=== PATIENT | female | born 1995 | race Hispanic/Latino ===

== ENCOUNTER → 2020-12-21 11:20 | Outpatient (CLI) | payer OTHER, SELFPAY ==
[2020-12-21 12:28] LABS: Add Manual Diff / Slide Review NO; Basophils Absolute Auto 0 /uL (0-100); Basophils Percent Auto 0.3 % (0-2); Eosinophils Absolute Auto 100 /uL (0-450); Eosinophils Percent Auto 1.4 % (2-4); Hematocrit 32.5 % (36-46); Hemoglobin 11.3 g/dL (12.0-16.0); Lymphocytes Absolute Auto 1400 /uL (1100-4500); Lymphocytes Percent Auto 16.1 % (25-40); Mean Corpuscular HGB Conc 34.8 % (30-36); Mean Corpuscular Hemoglobin 29.6 PG (26-34); Monocytes Absolute Auto 500 /uL (0-900); Monocytes Percent Auto 5.9 % (3-14); Neutrophils Absolute Auto 6400 /uL (1500-7000); Neutrophils Percent Auto 76.3 % (50-75); Platelet Count 249 X10^3/uL (150-400); Red Blood Cell Count 3.82 X10^6/uL (4.0-5.2); White Blood Cell Count 8.4 X10^3/uL (4.5-11.0)
[2020-12-21 13:10] LABS: Appearance Urine UA CLEAR; Bilirubin Urine UA NEGATIVE (NEGATIVE); Color Urine UA YELLOW; Glucose Urine UA 1+ g/dL (Negative); Ketones Urine UA NEGATIVE (NEGATIVE); Leukocyte Esterase Urine UA NEGATIVE (NEGATIVE); Nitrite Urine UA NEGATIVE (Negative); Occult Blood Urine UA TRACE-LYSED (Negative); Protein Urine UA NEGATIVE (Negative); Specific Gravity Urine UA 1.015 (1.000-1.035); Urobilinogen Urine UA 0.2 E.U./dL (0.2)
[2020-12-21 13:11] LABS: pH Urine UA 6.5 (4.5-8.0)
[2020-12-21 15:40] LABS: Hepatitis B Surface Antigen NEGATIVE s/c (NEGATIVE)
[2020-12-21 16:00] LABS: HIV 1 & 2 Ab/Ag 4th Gen Combo NEGATIVE (NEGATIVE); Hep C Virus Ab w/Reflex Quant NEGATIVE s/c (NEGATIVE)
[2020-12-21 19:26] LABS: Urine N gonorrhoeae NOT DETECTED
[2020-12-21 19:40] LABS: Urine Chlamydia NOT DETECTED
[2020-12-22 13:37] LABS: Varicella IgG Antibody 161 index (Immune >165)
[2020-12-24 10:09] LABS: RPR Screen Non Reactive (Non Reactive)
[2020-12-24 19:50] LABS: AFP, Serum 101.3 ng/mL (.); Estriol, Free 1.45 ng/mL (.); Inhibin A, Dimeric 307.57 pg/mL (.); Maternal Ethnicity Other (.); Maternal Weight 182 lbs (.); Number of Fetuses Twins (.); OSBR Risk 1 IN 367 (.); Results Report (.); Test Results *Screen Negative* (.); hCG, MoM 3.05 (.); hCG, Serum 92828 mIU/mL (.)
[2020-12-28 13:42] LABS: Rubella Antibody IgG 22.5 IU/mL (>15)
== END ==
PROVIDERS: Physician Assistant; Referring Provider Obstetrics & Gynecology; Visit Provider Obstetrics & Gynecology
DX: O30.009 Twin pregnancy, unspecified number of placenta and unspecified number of amniotic sacs, unspecified trimester (principal); R10.2 Pelvic and perineal pain; Z3A.16 16 weeks gestation of pregnancy
CPT/HCPCS: 36415; 80055; 81003; 82105; 82677; 84702; 86336; 86787; 86803; 86850; 86900; 86901; 87086; 87210; 87389; 87491; 87591

== ENCOUNTER → 2021-03-13 13:39 | Outpatient (CLI) | payer OTHER, SELFPAY ==
--- NOTE | 2021-03-13 13:41 | DI.US.S_ITS ---
PROCEDURE: US OB >= 14 WK FETUS ADD GEST INDICATIONS: Anatomy scan OUTSIDE/PRIOR DATING DATA: Last menstrual period (LMP): 08/25/2020. LMP-based estimated date of delivery (RALPH): 06/01/2021. First dating scan (date and location): 10/15/2020. Estimated date of delivery (RALPH) from first dating scan: 05/30/2021. The calculations are made using the ultrasound derived RALPH of 05/30/2021. TECHNIQUE: Real-time scanning was performed of the fetuses, with image documentation and biometric measurements. COMPARISON: [facility], US, US OB <= 14 WEEKS FETUS, 10/30/2020, 16:38. [facility], US, US OB <= 14 WEEKS FETUS, 11/12/2020, 14:00. [facility], , US OB >= 14 WEEKS FETUS, 01/07/2021, 14:53. [facility], , US OB >= 14 WEEKS FETUS, 03/04/2021, 16:44. FINDINGS: General: An intrauterine dichorionic-diamniotic twin is present, as evidenced by separate placentas, differing sexes, and an intervening membrane of greater than 2 mm. Maternal cervical canal: 3.7 cm long. Normal lower limit is 2.5 cm. FETUS A: Fetus was initially in right breech position with subsequent migration to transverse position with head to maternal right, variable in presentation. Largest amniotic fluid pocket: 6.2 cm; normal range is 2-8 cm. Placental position is posterior, without previa. heart rate: 132 beats per minute. biometrics: Biparietal diameter: 7.5 cm, 30 weeks is 0 days Head circumference: 27.3 cm, 29 weeks 6 days Abdominal circumference: 25.3 cm, 29 weeks 3 days Femur length: 5.4 cm, 28 weeks 4 days Gestational age from initial ultrasound: 28 weeks 6 days Composite gestational age from present scan: 29 weeks 3 days Estimated weight and percentile: 1357 g, 51st percentile Anatomic survey: Limited by advanced gestational age. Neuro: Not well seen. Ventricles are normal at less than 10 mm. Cisterna magna is grossly normal at 3-11 mm. Cerebellum is normal in size and morphology. Face: Nose and lips, facial profile was not well seen. Spine: The skin line was not well seen. Heart: 4 chambered heart is present. Ventricular outflow tracts not well seen. Diaphragm: Diaphragm is grossly intact. Stomach: Left-sided stomach is present. Kidneys: No hydronephrosis. Normal ranges are less than 5 mm in 2nd trimester, less than 7 mm in 3rd trimester. Cord: 3 vessel cord present. Cord insertions were not well visualized. Bladder: Normal in size. Extremities: The feet were not well visualized. FETUS B: Fetus is located on the maternal left side, and is in variable presentation. Largest amniotic fluid pocket: 3.1 cm; normal range is 2-8 cm. Placental position is posterior, without previa. heart rate: 137 beats per minute. biometrics: Biparietal diameter: 7.4 cm, 29 weeks 4 days Head circumference: 26.9 cm, 29 weeks 2 days Abdominal circumference: 23.9 cm, 20 weeks 1 day Femur length: 5.6 cm, 29 weeks 2 days Gestational age from initial ultrasound: 28 weeks 6 days Composite gestational age from present scan: 29 weeks 1 day Estimated weight and percentile: 1280 g, 33rd percentile Anatomic survey: Neuro: Ventricles are normal at less than 10 mm. Cisterna magna is normal at 3-11 mm. Cerebellum is normal in size and morphology. Face: Not well seen. Spine: The skin line was not well seen. Heart: 4 chambered heart is present, with normal ventricular outflow tracts. Diaphragm: Diaphragm is grossly intact. Stomach: Left-sided stomach is present. Kidneys: No hydronephrosis. Normal ranges are less than 5 mm in 2nd trimester, less than 7 mm in 3rd trimester. Cord: 3 vessel cord present. The cord insertions were not well visualized. Bladder: Normal in size. Extremities: The feet were not well visualized. IMPRESSION: 1. Living twin intrauterine demonstrates interval growth with estimated weight of twin A at the 51st percentile and twin B at the 33rd percentile. 2. Limited anatomic survey due to advanced gestational age. No gross abnormalities are identified but the exam is limited as described. We strive to produce accurate, complete, and clear reports of imaging services. To assist us in improving patient care, this report was composed using standard report templates and voice recognition software. Therefore, it may contain abnormal punctuation, insertions and/or omissions. Occasional wrong-word or sound-alike substitutions may occur. Though we review the report and make efforts to correct it, we do recommend that the report be read carefully in proper context to recognize any text inaccuracies. Dictated by: Denis Mcgee M.D. on 03/13/2021 at 17:46 Transcribed by: HANG on 03/13/2021 at 17:51 Approved by: Denis Mcgee M.D. on 03/14/2021 at 17:47
== END ==
PROVIDERS: Referring Provider Obstetrics & Gynecology; Visit Provider Obstetrics & Gynecology
DX: O30.043 Twin pregnancy, dichorionic/diamniotic, third trimester; Z36.89 Encounter for other specified antenatal screening; Z3A.29 29 weeks gestation of pregnancy
CPT/HCPCS: 76811; 76812

== ENCOUNTER → 2021-03-15 08:00 | Outpatient (CLI) | payer OTHER, SELFPAY ==
[2021-03-15 09:43] LABS: Hematocrit 27.8 % (36-46); Hemoglobin 9.5 g/dL (12.0-16.0)
[2021-03-15 11:09] LABS: GTT (PREG) 1 Hour PP 50gm Dose 124 mg/dL (76-139)
== END ==
PROVIDERS: Referring Provider Obstetrics & Gynecology; Visit Provider Obstetrics & Gynecology
DX: O30.049 Twin pregnancy, dichorionic/diamniotic, unspecified trimester (principal); Z3A.25 25 weeks gestation of pregnancy
CPT/HCPCS: 36415; 82950; 85014; 85018

== ENCOUNTER → 2021-05-05 13:50 | Outpatient (CLI) | payer OTHER, SELFPAY ==
[2021-05-06 16:16] LABS: Strep Grp B PCR NEG for Grp B Strep
== END ==
PROVIDERS: Visit Provider Obstetrics & Gynecology
DX: Z34.83 Encounter for supervision of other normal pregnancy, third trimester (principal); Z3A.36 36 weeks gestation of pregnancy
CPT/HCPCS: 87653

== ENCOUNTER 2021-05-12 15:29 | Outpatient (CLI) | payer OTHER, SELFPAY | END 2021-05-12 17:00 | disposition home or self-care (01) | LOC: OB 05-16 09:31 | PROVIDERS: Referring Provider Obstetrics & Gynecology; Visit Provider Obstetrics & Gynecology | DX: O30.003 Twin pregnancy, unspecified number of placenta and unspecified number of amniotic sacs, third trimester (principal); Z3A.37 37 weeks gestation of pregnancy | CPT/HCPCS: 59025; G0378; G0379 ==

== ENCOUNTER 2021-05-19 05:41 | Inpatient (IN) | payer OTHER, SELFPAY ==
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
[2021-05-19 06:45] LABS: Add Manual Diff / Slide Review NO; Basophils Absolute Auto 100 /uL (0-100); Basophils Percent Auto 0.7 % (0-2); Eosinophils Absolute Auto 100 /uL (0-450); Eosinophils Percent Auto 0.9 % (2-4); Hemoglobin 9.7 g/dL (12.0-16.0); Lymphocytes Absolute Auto 1900 /uL (1100-4500); Lymphocytes Percent Auto 25.5 % (25-40); Mean Corpuscular HGB Conc 32.5 % (30-36); Mean Corpuscular Hemoglobin 24.7 PG (26-34); Mean Corpuscular Volume 76.1 fL (80-100); Monocytes Absolute Auto 600 /uL (0-900); Monocytes Percent Auto 7.7 % (3-14); Neutrophils Absolute Auto 4900 /uL (1500-7000); Neutrophils Percent Auto 65.2 % (50-75); Platelet Count 279 X10^3/uL (150-400); Red Blood Cell Count 3.95 X10^6/uL (4.0-5.2); Red Cell Distribution Width 14.4 % (11.6-14.8); White Blood Cell Count 7.6 X10^3/uL (4.5-11.0)
--- NOTE | 2021-05-19 06:48 | PM.PREOP ---
Pre-operative Note COVID-19 Result date/Date tested (Pos, Neg/Pending): 05/19/21 Criteria for continued procedure: Delay expected to result in less-positive ultimate med/surg outcome and Non-surgical alternatives not available or appropriate per current SOC Interval Note History & Physical reviewed/Exam performed by Physician: Yes Changes to H&P: No H&P completed within 30 days and has changed as indicated here:: 05/19/21
[2021-05-19 06:56] LABS: COVID19 -Nasal RAPID Negative (Negative)
[2021-05-19 07:00] VITALS: BP 130/70
[2021-05-19] MEDS: LACTATED RINGERS 1,000 ML 100 ML IV ×5 (07:06→18:52)
[2021-05-19] MEDS: CITRIC ACID/SODIUM CITRATE 15 ML SOLUTION 30 ML PO (07:12)
--- NOTE | 2021-05-19 07:53 | SUR.OPER ---
Supine on Padded OR bed, head on pillow, safety belt at thigh, arms secured on padded arm boards at <90 degrees abduction. Bump under right buttock. Legs uncrossed with pillow under knees, gel pad to heels, tape over blanket to lower legs.
[2021-05-19] MEDS: CEFAZOLIN 2 GM/20 ML SYRINGE IV (08:19)
--- NOTE | 2021-05-19 08:42 | SUR.OPER ---
viable baby A male born @ 0832. Viable baby B girl born @6095
[2021-05-19 09:16] VITALS: BP 108/57; PULSE 59; RESP 15; TEMP 36; O2SAT 100
--- NOTE | 2021-05-19 09:19 | P.OP_ITS ---
Operative Date/Time/Diagnoses Date of procedure: 05/19/21 Time of procedure: 09:20 Pre-op diagnosis: Thirty-eight weeks gestation Previous section Dichorionic/diamniotic twins Post-op diagnosis: same Procedure & Clinicians Procedure: Repeat low-transverse section Same procedure as scheduled: Yes Indications: 38 weeks gestation Dichorionic/diamniotic twins Previous section Surgeon: Atiya Araujo Click Yes if Unassisted: No Award Clerk: Deborah Rosales Reason for Award Clerk: The assistant professor of biochemistry was necessary to retract upon entry of the abdomen and uterus. The assistant professor of biochemistry clipped suture and retracted on closure. She closed the contralateral fascia. She is tested with delivery of both babies. Anesthesia Type: Spinal Operative Notes Findings: Live male infant in the complete breech presentation Live female in the vertex presentation Normal uterus, tubes, and ovaries Closure Type: primary Specimen(s): cord blood and placenta Intraoperative meds administered: Duramorph, Ketorolac and Pitocin Applied: Catheter (To continuous drainage) Estimated Blood Loss (mL): 500 Blood products transfused: none Procedure in detail: The patient was taken to the operating room where she was placed in the seated position. Spinal anesthesia with Duramorph was administered. The patient was then placed in the dorsal supine position with a leftward tilt. She was prepped and draped in the usual sterile fashion. A timeout was performed. After spinal analgesia was found to be adequate, a Pfannenstiel skin incision was made through the previous incision and carried through to the underlying layer fascia. The fascia was nicked in the midline, and the incision extended bilaterally with the Santos scissors. The superior aspect of the fascial incision was grasped with a Stephanie clamps, elevated, and the underlying rectus muscles dissected off sharply and bluntly. Attention was then turned to the inferior aspect of this incision which in a similar fashion was grasped with a Taylor clamps, elevated, and the underlying rectus muscles dissected off sharply and bluntly. The rectus muscles were in the midline. The peritoneum was identified, grasped between 2 hemostats, and entered sharply with the Metzenbaum scissors. This incision was extended superiorly and inferiorly with good visualization of the bladder. The bladder blade was inserted. The vesicouterine peritoneum was identified, grasped with the pickup, and entered sharply with the Metzenbaum scissors. This incision was extended bilaterally, and the bladder flap was created digitally. The bladder blade was reinserted. The lower uterine segment was incised in a transverse fashion with the scalpel. Upon entering the amniotic sac of Baby A, there was moderate amount of clear amniotic fluid. The was found to be in the complete breech presentation, and was delivered by total breech extraction. The nose and mouth were suctioned with bulb suction. The cord was double clamped and cut after one minute. Cord bloods were obtained. The infant was handed off to waiting RN and RT. Baby B was found to be in the vertex presentation and was delivered without difficulty. The cord was double clamped and cut after 1 minute. Cord bloods were obtained. Uterus was cleared of all clots and debris. The uterine incision was repaired with #1 chromic in a running interlocking fashion, and a second layer the same suture was used for an imbricating layer. Hemostasis was achieved. The tubes and ovaries were examined and were found to be normal. The gutters were cleared of all clots and debris. The bladder flap was reapproximated using 2-0 Vicryl in a running fashion. The parietal peritoneum was closed using 2-0 Vicryl in a running fashion. The fascia was reapproximated using 0 Vicryl in a running fashion. The subcutaneous layer was copiously irrigated with warm normal saline. 5 simple interrupted sutures of 3-0 Vicryl were placed to reapproximate the subcutaneous layer. The skin was closed with 4-0 undyed Vicryl in a subcuticular fashion. Steri-Strips were placed. An Aquacell dressing was place d. The uterus was expressed of a small amount of old blood. Sponge, lap, and instrument counts were correct x-2. The patient tolerated the procedure well, and was taken to PACU in stable condition. One cord clamp placed on the cord attached to the placenta for baby A. Two cord clamps were placed on the cord attached to the placenta for baby B. . Mom and both infants stable to recovery. Complications: none Baby 1: Gender: Male Presentation: breech Details: complete Cord Vessel Description: 3 Vessels score (1 min): 8 score (5 min): 9 weight: 5 lb 12.9 oz 2: Gender: Female Presentation: vertex Position: Left Occiput Anterior Placental Delivery Description: Spontaneous Cord Vessel Description: 3 Vessels score (1 min): 9 score (5 min): 9 weight: 6 lb 10.2 oz Post-operative Condition: stable Disposition: PACU Aftercare: routine postop
--- NOTE | 2021-05-19 09:37 | SUR.PHASEI ---
Report called to amira SINGH. Pt returning to Room 2.
[2021-05-19] MEDS: LANOLIN OINT 7 GM 1 APPLIC TOP (15:43)
[2021-05-19] MEDS: KETOROLAC 30 MG/ML VIAL IV ×2 (15:43→21:58)
[2021-05-19] MEDS: ACETAMINOPHEN 325 MG TABLET 650 MG PO (21:58)
[2021-05-20] MEDS: KETOROLAC 30 MG/ML VIAL IV (03:52)
[2021-05-20] MEDS: ACETAMINOPHEN 325 MG TABLET 650 MG PO ×3 (03:52→18:17)
[2021-05-20 04:59] LABS: Hematocrit 22.6 % (36-46); Hemoglobin 7.7 g/dL (12.0-16.0)
[2021-05-20] MEDS: PRENATAL VIT,CALC/IRON/FOLIC 1 TABLET 1 TAB PO (09:22)
[2021-05-20] MEDS: DOCUSATE 100 MG CAPSULE 200 MG PO (09:23)
[2021-05-20] MEDS: IBUPROFEN 600 MG TABLET PO ×2 (09:24→18:18)
[2021-05-20 18:17] VITALS: TEMP 36.7
[2021-05-20 18:18] VITALS: TEMP 36.7
[2021-05-20 18:48] VITALS: BP 116/67; PULSE 75; RESP 16; TEMP 36.7
--- NOTE | 2021-05-21 07:01 | PM.OBDS.1 ---
Discharge Providers Provider Date of admission: 05/19/21 05:41 Discharge Date: 05/20/21 Primary care physician: Doctor Justus MD Consults: 05/19/21 09:39 Consult to Mold Maintenance Technician Routine Comment: Discharge provider: Atiya Araujo MD Summary Hospital Course Date Patient Seen: 05/20/21 Time Patient Seen: 17:35 Diagnoses: Dichorionic/diamniotic twins at 38 weeks gestation Previous section Repeat low-transverse section Hospital Course: Patient is a 25-year-old 2 para 2002 who presented on May 19, 2021 for a scheduled repeat low-transverse section at 38 weeks gestation with dichorionic/diamniotic twins. She underwent the repeat low-transverse section without complication. Her course was unremarkable. On post op day # 1 her catheter was removed and she was able to void. Pain was well controlled. No nausea or vomiting. Bleeding tapering. She was ambulating independently. She was tolerating a diet. She was passing flatus. Peripartum Data Delivery Method: Section Laceration Description: None Procedures: Spinal anesthesia Repeat low-transverse section complications: none [place] 1: Gender: Male Disposition of : home 2: Gender: Female Disposition of : home Status at Discharge Cognitive/behavioral status at discharge: oriented Functional status at discharge: independent ambulation Overall status at discharge: patient is progressing back to baseline Time Spent with Patient Time attestation: Total time spent providing and/or coordinating discharge services: Time spent: Less than 30 minutes Objective Labs Result Diagrams: 05/20/21 04:40 Exam Vital Signs (past 8 hours): Oxygen Delivery Method Room Air Narrative Exam Narrative: Generally: Patient is sitting up in bed, feeding 1 infant, no acute distress Lungs: Clear to auscultation bilaterally Cardiovascular: Regular rate and rhythm Abdomen: Soft, nontender Fundus: Firm at U +1 Extremities: 1+ edema, negative Homans Discharge Plan Discharge Plan Patient Disposition: Home Provider Discharge Comment: Call with fever, chills, redness or drainage around the incision, or bleeding vaginally more than a pad in an hour Tylenol 650 mg every 6 hours as needed Stool softener as needed Discharge orders & Medications Prescriptions: New ibuprofen 600 mg tablet 600 mg PO Q6H PRN (Reason: cramping) Qty: 30 2RF oxycodone 5 mg tablet 5 mg PO Q4H PRN (Reason: pain) Qty: 20 0RF Continued prenat.vits,cait,pam-fymg-emjpv Tablet 1 tab PO DAILY Qty: 90 2RF docusate sodium 100 mg capsule 100 mg PO DAILY MDD 1 Qty: 30 0RF Rx Instructions: Take one daily as needed. hydrocortisone [Anusol-HC] 2.5 % cream with perineal applicator 1 applic AK BID-QID PRN (Reason: hemorrhoids) Qty: 30 2RF Discontinued fluconazole [Diflucan] 150 mg tablet 150 mg PO DAILY Qty: 1 0RF ondansetron 4 mg tablet,disintegrating 4 mg PO Q6H PRN (Reason: nausea and vomiting) Qty: 20 2RF Follow up/Referrals: Atiya Araujo MD [Physician] - 1 Week (My office will call tomorrow to arrange Aquacel removal) Diet/Activity/Treatments Diet: Regular Activity: No heavy lifting Nothing in vagina Skin/Wound/Dressing Care Report to your healthcare provider any signs of infection, such as:: chills, fever, increased pain and unusual drainage Dressing: Do not remove Visit Report/Discharge Packet Instructions: DI for , DI for Prescription Opioid Use Stand Alone Forms: Discharge: Care Discharge Data Primary Care Provider: Miscellaneous,Doctor
== END 2021-05-20 19:45 | disposition home or self-care (01) | DRG 788 ==
PROVIDERS: Admitting Provider Obstetrics & Gynecology; Referring Provider Obstetrics & Gynecology; Visit Provider Obstetrics & Gynecology
PROC: 10D00Z1 Extraction of Products of Conception, Low, Open Approach (ICD-10-PCS; CPT 59514; principal; 2021-05-19 07:45)
DX: O34.211 Maternal care for low transverse scar from previous cesarean delivery (principal); Z3A.38 38 weeks gestation of pregnancy; Z37.2 Twins, both liveborn; O32.8XX1 Maternal care for other malpresentation of fetus, fetus 1; O30.043 Twin pregnancy, dichorionic/diamniotic, third trimester; Z20.822 Contact with and (suspected) exposure to COVID-19
CPT/HCPCS: 36415; 59050; 59510; 59514; 85014; 85018; 85025; 86850; 86900; 86901; 87635; C9803; J0690; J1100; J1885; J2274; J2405; J2590; J2765